=== PATIENT | male | born 1970 | race Caucasian/White ===

== ENCOUNTER 2024-10-25 00:13 | Emergency (ER) | payer OTHER, SELFPAY ==
[2024-10-25 00:15] VITALS: BP 186/94
[2024-10-25] MEDS: TORADOL 15 MG IV ×2 (03:13→06:20)
[2024-10-25] MEDS: ZOFRAN 4 MG IV ×2 (03:13→08:09)
[2024-10-25 03:29] LABS: Hematocrit 42.2 % (39.0-52.0); Hemoglobin 14.7 g/dL (13.0-18.0); Mean Corp Hgb Conc. 34.8 g/dL (33.0-37.0); Mean Corpuscular Volume 89.6 fL (80.0-94.0); Nucleated Red Blood Cells % 0 % (-); Platelet Count 163 10^3/uL (130-400); Red Cell Dist. Width 12.9 % (11.5-14.5)
--- NOTE | 2024-10-25 03:42 | ED.GENMED ---
History of Present Illness
General
Chief Complaint: Abdominal Pain
Source: patient
Exam Limitations: none
Time Seen by Provider: 10/25/24 02:29
Nursing documentation reviewed up to this point in time: agreed with
History of Present Illness
History of Present Illness:
54-year-old male presenting to the emergency department today with concerns of worsening abdominal pain mainly to the right side of the abdomen worsening throughout the day today. Initially started to the mid abdomen now mainly to the right side to
the right upper and right lower. Denies any significant changes in bowel movements has had some nausea.
Review of Systems
Review of Systems
Allergies reviewed?: Yes
All Other Systems: ROS reviewed and negative except as documented in HPI and ROS
Phy Exam
Physical Exam
Physical Exam:
GENERAL: Alert , in no apparent distress
EYE: pupils equal and reactive
NECK: Supple, no significant adenopathy.
ENT: o/p clr, mmm.
CARDIAC: Regular rate and rhythm .
LUNGS: Clear breath sounds bilaterally, no acute respiratory distress, no wheezes/rales/rhonchi
ABDOMEN: Discomfort throughout the right side of the abdomen to palpation left side of the abdomen benign.
NEUROLOGICAL: Alert and oriented, no focal neuro deficits
SKIN: Warm and dry, skin intact.
MUSCULOSKELETAL: No edema, well perfused.
PSYCH: Normal and appropriate interaction.
Course
Orders/Labs/Results
Orders:
Orders
10/25/24 02:55
CT Abd/Pel (IV only)-DH only Urgent
Comment:
Reason For Exam: right sided abd pain
Ketorolac [Toradol] 15 mg IV NOW STA
Ondansetron Injectable [Zofran] 4 mg IV NOW STA
10/25/24 03:21
Complete Blood Count/With Diff Urgent
Comprehensive Metabolic Panel Urgent
Lipase Urgent
10/25/24 06:16
Ketorolac [Toradol] 15 mg IV NOW STA
10/25/24 06:24
EKG- Treatment ONCE
10/25/24 06:29
Famotidine [Pepcid] 20 mg IV NOW STA
10/25/24 08:02
Ondansetron Injectable [Zofran] 4 mg .ROUTE .STK-MED ONE
10/25/24 08:09
Ondansetron Injectable [Zofran] 4 mg IV NOW STA
Abnormal Lab Results
10/25/24
03:21
MCH 31.2 H pg
(27.0-31.0)
Absolute Neuts (auto) 8.9 H 10^3/uL
(1.4-6.5)
Absolute Lymphs (auto) 1.0 L 10^3/uL
(1.2-3.4)
Neutrophils % 85.3 H %
(42.2-75.2)
Lymphocytes % 9.5 L %
(20.5-51.1)
Chloride 109 H mmol/L
(98-107)
Glucose 174 H mg/dl
(70-99)
10/25/24 03:21
10/25/24 03:21
Vital Signs
Initial and Last Documented VS:
Initial Vital Signs
Temp Pulse Resp BP Pulse Ox
97.8 F 60 20 186/94 98
10/25/24 00:15 10/25/24 00:15 10/25/24 00:15 10/25/24 00:15 10/25/24 00:15
Last Documented Vital Signs
Temp Pulse Resp BP Pulse Ox
97.8 F 60 20 186/94 96
10/25/24 00:15 10/25/24 00:15 10/25/24 00:15 10/25/24 00:15 10/25/24 04:00
MDM/Problems Addressed
MDM/Problems Addressed:
54-year-old male presenting to the emergency department today for concerns of right-sided abdominal pain worsening throughout the day. Here reproducible pain to the right side. Labs obtained and unremarkable. Plan for CT scan for further
assessment.
*Pulse Oximetry
SaO2: 97
Oxygen Mode of Delivery: Room air
Patient hypoxic: no (96)
*Critical Care Note
Total Time (30-74mins, 75-104mins- exclusive of procedures): Not Applicable
ED Attending Note
-
Portions of this chart may have been created with voice recognition software.� Occasional wrong word or��sound alike� substitutions may have occurred due to the inherent limitations of voice recognition software.
Discharge Plan
Departure
Patient Disposition: Home (Routine Discharge)
Date of Disposition: 10/25/24
Time of Disposition: 06:38
Patient with high blood pressure during this ER visit?: No
Condition: Good
Covid-19: Not Applicable
Discharge Problem:
Abdominal pain, acute, right upper quadrant
Instructions: Abdominal Pain
Prescriptions:
New
pantoprazole [Protonix] 20 mg tablet,delayed release (DR/EC)
20 mg PO DAILY Qty: 14 0RF
ondansetron 4 mg tablet,disintegrating
4 mg PO Q8H PRN (Reason: nausea and vomiting) Qty: 10 0RF
Referrals:
Ventura Valdes MD [Active, Gastroenterology] - Follow up in 10 days
UNKNOWN - PT DOES,NOT KNOW [Family Provider]
Activity Restrictions/Additional Instructions:
You came to the emergency department today for concerns of abdominal pain. Here you have a reassuring assessment. Please follow closely with your GI doctor and take Protonix daily. Return for any worsening, new or concerning symptoms.
Interventions
Interventions:
*Risk Screen - Suicide Last Done: 10/25/24 00:15
*General Assessment Last Done: 10/25/24 04:25
*Neglect/Abuse Screening Last Done: 10/25/24 00:15
*ED- Fall Risk Assessment Last Done: 10/25/24 04:25
*ED COVID-19 Vaccine History Last Done: 10/25/24 04:25
*Nursing Disposition Last Done: 10/25/24 08:10
JV-Hlwyse-[id number] Assessment Last Done: 10/25/24 04:25
Discharge Date and Time
Discharge Date/Time: 10/25/24 08:11
Print Language: GREEK
[2024-10-25 03:57] LABS: ALT (SGPT) 28 U/L (0-50); AST (SGOT) 33 U/L (17-59); Albumin 5.0 g/dl (3.5-5.0); Alkaline Phosphatase 88 U/L (38-126); Blood Urea Nitrogen 15 mg/dl (9-20); Calcium 9.6 mg/dl (8.4-10.2); Carbon Dioxide 26 mmol/L (22-30); Chloride 109 mmol/L (98-107); Glucose 174 mg/dl (70-99); Lipase 59 U/L (23-300); Potassium 4.8 mmol/L (3.5-5.1); Sodium 140 mmol/L (135-145); Total Protein 7.9 g/dl (6.3-8.2); eGFR > 60.00
[2024-10-25] MEDS: PEPCID 20 MG IV (07:01)
== END 2024-10-25 08:11 | disposition home or self-care (01) ==
LOC: EMR 00:13
PROVIDERS: Emergency Medicine; EMERGENCY PHYSICIAN Emergency Medicine
DX: R10.11 Right upper quadrant pain (principal)
CPT/HCPCS: 96374; 96375; 96376; 99284; 74177; 80053; 83690; 85025; Q9967